=== PATIENT | male | born 1955 | race Two or more races ===

== ENCOUNTER → 2018-08-30 | Emergency (ER) | payer MEDICARE ==
[2018-08-30 22:14] VITALS: BMI 46.3
--- NOTE | 2018-08-30 22:34 | PDOC ---
History of Present Illness <Henry Darby - Last Filed: 08/30/18 23:31> - General History Source: Patient - History of Present Illness Initial Comments: 08/30/18 22:31 The patient is a 62 year old male with a PMH of morbid obseity, IDDM, Hepatitis B, chronic lymphedema, CHF who was BIBEMS with low blood sugar. @ bedside assists with history. Patient states he took his Metformin, Lantus (50 units) and Humalog (25 units) this morning before breakfast (2 peanut butter and jelly sandwiches) and Humalog (25 units) after eating. He did not eat any more food during the day because is he got busy going to his various health appointment including a liver ultrasound @ [facility]. States he last remembers watching [employer] and then found him difficult to arouse around 8:30 p.m. Patient's gave him a drink of pureed grapes and orange juice with little improvement in his symptoms. EMS was called and patient's BS was 29 @ home. S/p glucose and glucagon by EMS with improving mentation, repeat FS 73 en route. Patient denies any active medical complaints including headache, blurry vision, shortness of breath, chest pain abdominal pain, nausea/vomiting, diarrhea/ constipation. Allergy: Shellfish, Bees Surgical: abdominal hernia repair, appendectomy Social: former smoker (1/2 ppd 50 years - quit March 2018), denies alcohol, former marijuana/cocaine user PMD: Dr. Martina Escoot M.D. ([facility]) As per EMR, patient has not been evaluated in our ED on prior occasion. <Dorita Lazo - Last Filed: 08/31/18 00:09> - General Chief Complaint: Blood Sugar Problem Stated Complaint: HIGH BP Time Seen by Provider: 08/30/18 22:16 Past History <Henry Darby - Last Filed: 08/30/18 23:31> - Suicide/Smoking/Psychosocial Hx Smoking History: Unknown if ever smoked Hx Alcohol Use: No Drug/Substance Use Hx: No <Dorita Lazo - Last Filed: 08/31/18 00:09> - Past Medical History Allergies/Adverse Reactions: Allergies Allergy/AdvReac Type Severity Reaction Status Date / Time bee pollen Allergy Verified 08/30/18 22:57 shellfish derived Allergy Verified 08/30/18 22:57 Review of Systems - Review of Systems Constitutional: No: Chills, Fever HEENTM: No: Blurred Vision, Double Vision Respiratory: No: Cough, Shortness of Breath Cardiac (ROS): No: Chest Pain, Lightheadedness, Palpitations, Syncope ABD/GI: No: Constipated, Diarrhea, Nausea, Vomiting <Dorita Lazo - Last Filed: 08/31/18 00:09> *Physical Exam - Vital Signs Last Vital Signs Temp Pulse Resp BP Pulse Ox 98.5 F 64 20 180/100 H 99 08/30/18 22:11 08/30/18 22:11 08/30/18 22:11 08/30/18 22:11 08/30/18 22:11 <Henry Darby - Last Filed: 08/30/18 23:31> - Vital Signs Last Vital Signs Temp Pulse Resp BP Pulse Ox 98.5 F 64 20 180/100 H 99 08/30/18 22:11 08/30/18 22:11 08/30/18 22:11 08/30/18 22:11 08/30/18 22:11 - Physical Exam General Appearance: Yes: Nourished, Obese HEENT: positive: Normal Voice, Hearing Grossly Normal Neck: positive: Trachea midline, Supple Respiratory/Chest: positive: Lungs Clear Cardiovascular: positive: S1, S2, Edema (B/L LE edema 2/2 to chronic lymp) Vascular Pulses: Dorsalis-Pedis (R): 2+, Doralis-Pedis (L): 2+ Gastrointestinal/Abdominal: positive: Normal Bowel Sounds, Soft, Protuberent Extremity: positive: Other (B/L lymphedema (chronic), chronic venous stasis changes) Integumentary: positive: Normal Color, Dry, Warm Neurologic: positive: Fully Oriented, Alert <Dorita Lazo - Last Filed: 08/31/18 00:09> Medical Decision Making - Medical Decision Making 08/30/18 22:42 62 year old male with low BS (73 in the field). Hypertensive (180/100) @ presentation. Will repeat fingerstick, encourage PO intake. Monitor BP. Reassess. 08/30/18 23:44 Repeat BP 115/63 Fingerstick 159 Will discharge home with counseling to monitor BS and PO intake, return precautions and PMD follow-up. I discussed the physical exam findings, ancillary test results and final diagnoses with the patient. I answered all of the patient's questions. The patient was satisfied with the care received and felt comfortable with the discharge plan and treatment plan. The patient will return to the Emergency Department with any new, persistent or worsening symptoms. <Dorita Lazo - Last Filed: 08/31/18 00:09> *DC/Admit/Observation/Transfer <MehnazHenry - Last Filed: 08/30/18 23:31> - Discharge Dispostion Decision to Admit order: No <Dorita Lazo - Last Filed: 08/31/18 00:09> Diagnosis at time of Disposition: Hypoglycemia - Discharge Dispostion Disposition: HOME Condition at time of disposition: Good - Referrals Referrals: Martina Escoto [Primary Care Provider] - - Patient Instructions Printed Discharge Instructions: DI for Hypoglycemia Additional Instructions: Your sugar was extremely low today. Low blood sugar can cause confusion, lethargy, or even . You must be sure to eat enough to keep your blood sugar from falling too low. Check your blood sugar at least 4 times a day. If you experience any confusion, cold sweats, loss of consciousness, or any other concerning symptoms, return to the ER immediately. Otherwise, follow up with your primary doctor within 1 week. If you sugar continues to run low, you may need to have your insulin dosage adjusted.
--- NOTE | 2018-08-30 23:26 | PDOC ---
Attending Attestation - Resident Resident Name: Dorita Lazo - ED Attending Attestation I have performed the following: I have examined & evaluated the patient, The case was reviewed & discussed with the resident, I agree w/resident's findings & plan, Exceptions are as noted - HPI HPI: 08/30/18 23:21 The patient is a 62 year old female, with a significant past medical history of morbid obesity, IDDM, Hepatitis B, chronic lymphedema, CHF, who presents to the emergency department with at bedside for an episode of hypoglycemia. The patient states he didn't eat after breakfast this morning at 10AM (2 peanut butter and jelly sandwiches). He took his usual doses of lantus and novolog this AM. Denies inadvertently taking any additional doses. After he ate his sandwiches, he took his usual short-acting insulin. However, pt states that he was out running errands today and didn't have a chance to eat in the afternoon. He states he remembers watching TV on the couch this evening at about 8PM but has no recollection of the events afterwards. The at bedside states she found him confused at 8:30pm on the couch. She called EMS, who arrived and checked his sugar, which was 29 at the scene. Pt was given oral glucose and glucagon, with subsequent improvement in his mental status. Fingerstick in ER was 139. Pt at this time states that he feels completely back to baseline. The patient denies chest pain, shortness of breath, headache and dizziness. The patient denies fever, chills, nausea, vomit, diarrhea and constipation. The patient denies dysuria, frequency, urgency and hematuria. Allergies: NKDA PCP: Dr. aMrtina Escoto - Physicial Exam PE: 08/30/18 23:25 GENERAL: Awake, alert, and fully oriented, in no acute distress. HEAD: No signs of trauma EYES: PERRLA, EOMI, sclera anicteric, conjunctiva clear ENT: Auricles normal inspection, hearing grossly normal, nares patent, oropharynx clear without exudates. Moist mucosa NECK: Nontender, no stepoffs, Normal ROM, supple, no lymphadenopathy, JVD, or masses LUNGS: Breath sounds equal, clear to auscultation bilaterally. No wheezes, and no crackles HEART: Regular rate and rhythm, normal S1 and S2, no murmurs, rubs or gallops ABDOMEN: Soft, nontender, normoactive bowel sounds. No guarding, no rebound. No masses EXTREMITIES: Normal range of motion, no edema. No clubbing or cyanosis. No cords, erythema, or tenderness NEUROLOGICAL: Cranial nerves II through XII intact. 5/5 strength and sensation in all extremities, Normal speech, normal gait, normal cerebellar function SKIN: Warm, Dry, normal turgor, no rashes or lesions noted. - Medical Decision Making 08/30/18 23:25 62 M with IDDM presenting with episode of hypoglycemia and AMS, now resolved. Pt with no focal neuro deficits to suggest CVA/TIA. Pt's glucose was 29 in the field, likely 2/2 poor PO intake after taking his usual doses of insulin. Pt now with normal FSG and back to baseline mentation. - Close glucose monitoring at home - F/u PMD Repeat fingersticks in ED consistently >100 Pt is well appearing, with normal vitals. Clinically stable for DC at this time. I discussed the physical exam findings, ancillary test results and final diagnoses with the patient. I answered all of the patient's questions. The patient was satisfied with the care received and felt comfortable with the discharge plan and treatment plan. The patient agrees to follow up with the primary care physician within 24-72 hours.
[2018-08-30 23:50] VITALS: BP 115/63; PULSE 63; TEMP 97.5
== END | disposition home or self-care (01) ==
LOC: JER 21:58
DX: E11.649 Type 2 diabetes mellitus with hypoglycemia without coma (principal); Z79.4 Long term (current) use of insulin; Z79.84 Long term (current) use of oral hypoglycemic drugs; I50.9 Heart failure, unspecified; I89.0 Lymphedema, not elsewhere classified; Z86.19 Personal history of other infectious and parasitic diseases; E66.01 Morbid (severe) obesity due to excess calories; Z68.42 Body mass index [BMI] 45.0-49.9, adult
CPT/HCPCS: 82962; 99282-25

== ENCOUNTER 2021-03-14 11:09 | Emergency (ER) | payer OTHER ==
[2021-03-14 11:25] VITALS: TEMP 98.6; BMI 47.5
[2021-03-14] MEDS ORDERED: FAMOTIDINE 20 MG/50 ML IVPB 20 MG/50 ML MG IVPB ONE ×2 (12:27→12:51)
[2021-03-14] MEDS ORDERED: METOCLOPRAMIDE HCL INJECTION 10 MG/2 ML VIAL IVPUSH ONE (12:27)
[2021-03-14] MEDS ORDERED: MAG HYDROX/AL HYDROX/SIMETH 30 ML UNIT-DOSE CUP PO ONE (12:28)
[2021-03-14] MEDS ORDERED: ACETAMINOPHEN 1000 MG/100 ML VIAL (NON FORMULARY) IVPB ONE (12:47)
[2021-03-14] MEDS ORDERED: METOCLOPRAMIDE HCL INJECTION 10 MG/2 ML VIAL ONE (12:51)
[2021-03-14] MEDS ORDERED: MAG HYDROX/AL HYDROX/SIMETH 30 ML UNIT-DOSE CUP ONE (12:51)
[2021-03-14 13:06] LABS: VENOUS BASE EXCESS -3.4 mmol/L (-2-2); VENOUS O2 SATURATION 29.3 % (70-80); VENOUS PCO2 43.2 mmHg (38-52); VENOUS PH 7.331 (7.310-7.410)
[2021-03-14] MEDS ORDERED: ACETAMINOPHEN INJECTION 100 ML IVPB ONE (13:10)
[2021-03-14 13:15] LABS: BASO % 0.6 % (0-2.0); EOS % 0.7 % (0-4.5); HEMATOCRIT 40.1 % (35.4-49); LYMPH % 13.3 % (8-40); MCH 29.1 pg (25.7-33.7); MCHC 32.4 g/dl (32.0-35.9); MEAN CELL VOLUME 89.8 fl (80-96); MONO % 6.8 % (3.8-10.2); NEUT % 78.6 % (42.8-82.8); PLATELET COUNT 289 K/MM3 (134-434); RBC 4.46 M/mm3 (4.00-5.60); RDW 14.1 % (11.9-15.9)
[2021-03-14 13:18] LABS: CHLORIDE 113 mmol/L (98-107); SODIUM 143 mmol/L (136-145)
[2021-03-14 13:20] LABS: CALCIUM 9.2 mg/dL (8.5-10.1)
[2021-03-14 13:21] LABS: ALBUMIN 3.6 g/dl (3.4-5.0); ANION GAP 5 MMOL/L (8-16); BLOOD UREA NITROGEN 35.6 mg/dL (7-18); CO2 25 mmol/L (21-32); GLUCOSE,RANDOM 105 mg/dL (74-106); LIPASE 113 U/L (73-393)
[2021-03-14 13:23] LABS: SGPT/ALT 13 U/L (13-61)
[2021-03-14 13:24] LABS: CREATININE 1.9 mg/dL (0.55-1.3); SGOT/AST 11 U/L (15-37)
[2021-03-14 13:26] LABS: ALK PHOS 110 U/L (45-117); BILIRUBIN,TOTAL 0.3 mg/dL (0.2-1); TOT PROT 7.9 g/dl (6.4-8.2)
[2021-03-14] MEDS ORDERED: ONDANSETRON 4 MG/2 ML VIAL IVPUSH ONE (13:50)
[2021-03-14] MEDS ORDERED: ONDANSETRON 4 MG/2 ML VIAL ONE (14:00)
[2021-03-14 16:39] VITALS: BP 149/86; PULSE 86
== END 2021-03-14 16:47 | disposition home or self-care (01) ==
LOC: JER 11:09
PROC: 3E033NZ Introduction of Analgesics, Hypnotics, Sedatives into Peripheral Vein, Percutaneous Approach (ICD-10-PCS; principal; 2021-03-14)
PROC: 3E033GC Introduction of Other Therapeutic Substance into Peripheral Vein, Percutaneous Approach (ICD-10-PCS; 2021-03-14)
DX: R19.7 Diarrhea, unspecified (principal); R11.2 Nausea with vomiting, unspecified
CPT/HCPCS: 36415; 71045-TC-FY; 76705-TC; 80053; 82550; 82803; 82962; 83690; 84484; 85025; 93005; 93010; 99285-25; C9803; J0131; U0003; U0005

== ENCOUNTER 2021-03-15 15:30 | Inpatient (IN) | payer OTHER ==
[2021-03-15] MEDS ORDERED: ONDANSETRON 4 MG/2 ML VIAL IVPUSH ONE (16:31)
[2021-03-15] MEDS ORDERED: SODIUM CHLORIDE 1,000 ML IV STA (16:31)
[2021-03-15 18:31] LABS: BASO % 0.6 % (0-2.0); EOS % 1.8 % (0-4.5); HEMATOCRIT 40.2 % (35.4-49); HEMOGLOBIN 13.1 GM/dL (11.7-16.9); LYMPH % 14.9 % (8-40); MCHC 32.5 g/dl (32.0-35.9); MEAN CELL VOLUME 89.2 fl (80-96); MONO % 5.6 % (3.8-10.2); NEUT % 77.1 % (42.8-82.8); PLATELET COUNT 299 K/MM3 (134-434); RDW 14.2 % (11.9-15.9); WHITE BLOOD COUNT 15.2 K/mm3 (4.0-10.0)
[2021-03-15 18:47] LABS: ALBUMIN 3.7 g/dl (3.4-5.0); BLOOD UREA NITROGEN 27.7 mg/dL (7-18); CALCIUM 9.4 mg/dL (8.5-10.1)
[2021-03-15 18:50] LABS: CREATININE 2.2 mg/dL (0.55-1.3)
[2021-03-15 18:52] LABS: BILIRUBIN,TOTAL 0.4 mg/dL (0.2-1); TOT PROT 8.1 g/dl (6.4-8.2)
[2021-03-15] MEDS: HEPARIN NA (PORCINE) 5,000 UNITS/ML 1ML VIAL SQ SCH (23:55)
[2021-03-16] MEDS: HEPARIN NA (PORCINE) 5,000 UNITS/ML 1ML VIAL SQ SCH ×3 (01:43→21:57)
[2021-03-16] MEDS ORDERED: PT OWN MED DRAWER 7, Y5N ONE (09:23)
[2021-03-16 09:34] LABS: BASO % 1.1 % (0-2.0); EOS % 3.2 % (0-4.5); HEMATOCRIT 37.3 % (35.4-49); LYMPH % 23.7 % (8-40); MCHC 32.2 g/dl (32.0-35.9); MEAN CELL VOLUME 90.2 fl (80-96); MEAN PLT VOLUME 9.8 fl (7.5-11.1); MONO % 7.2 % (3.8-10.2); NEUT % 64.8 % (42.8-82.8); PLATELET COUNT 278 K/MM3 (134-434); RBC 4.14 M/mm3 (4.00-5.60); RDW 14.5 % (11.9-15.9)
[2021-03-16 09:59] LABS: CALCIUM 8.9 mg/dL (8.5-10.1)
[2021-03-16 10:00] LABS: ALBUMIN 3.3 g/dl (3.4-5.0); BLOOD UREA NITROGEN 35.3 mg/dL (7-18); MAGNESIUM 1.9 mg/dL (1.8-2.4)
[2021-03-16] MEDS ORDERED: FUROSEMIDE 40 MG TABLET (FP) PO SCH (10:00)
[2021-03-16 10:02] LABS: BILIRUBIN,TOTAL 0.3 mg/dL (0.2-1)
[2021-03-16 10:03] LABS: CREATININE 2.6 mg/dL (0.55-1.3)
[2021-03-16] MEDS: FINASTERIDE 5 MG TABLET (FP) PO SCH (10:25)
[2021-03-16] MEDS: ALLOPURINOL 100 MG TABLET (FP) PO SCH (10:25)
[2021-03-16] MEDS: ASPIRIN 81 MG CHEWABLE TABLETS PO SCH (10:26)
[2021-03-16] MEDS: TAMSULOSIN HCL 0.4 MG CAP PO SCH (10:26)
[2021-03-16] MEDS: INSULIN SLIDING SCALE (NOVOLOG) 1 VIAL SQ SCH ×3 (11:35→22:02)
[2021-03-16 12:35] LABS: URINE APPEARANCE CLEAR; URINE BILIRUBIN NEGATIVE (NEGATIVE); URINE COLOR YELLOW; URINE GLUCOSE (UA) NEGATIVE (NEGATIVE); URINE KETONE TRACE (NEGATIVE); URINE LEUK ESTERASE NEGATIVE (NEGATIVE); URINE NITRITE NEGATIVE (NEGATIVE); URINE PROTEIN TRACE (NEGATIVE); URINE UROBILINOGEN 0.2 mg/dL (0.2-1.0)
[2021-03-16] MEDS ORDERED: SODIUM CHLORIDE 0.45% 1,000 ML IV SCH (20:00)
[2021-03-16] MEDS: ACETAMINOPHEN 500 MG TABLET (FP) PO PRN (20:30)
[2021-03-16] MEDS: ATORVASTATIN CA 10 MG TABLET (FP) PO SCH (21:57)
[2021-03-16] MEDS: SERTRALINE HCL 50 MG TABLET (FP) PO SCH (21:57)
[2021-03-17] MEDS: INSULIN SLIDING SCALE (NOVOLOG) 1 VIAL SQ SCH ×4 (07:02→21:11)
[2021-03-17] MEDS: TAMSULOSIN HCL 0.4 MG CAP PO SCH (08:07)
[2021-03-17] MEDS: ALLOPURINOL 100 MG TABLET (FP) PO SCH (09:37)
[2021-03-17] MEDS: ASPIRIN 81 MG CHEWABLE TABLETS PO SCH (09:37)
[2021-03-17] MEDS: FINASTERIDE 5 MG TABLET (FP) PO SCH (09:37)
[2021-03-17] MEDS: HEPARIN NA (PORCINE) 5,000 UNITS/ML 1ML VIAL SQ SCH ×2 (09:37→21:10)
[2021-03-17 12:43] LABS: BASO % 0.7 % (0-2.0); EOS % 2.4 % (0-4.5); HEMATOCRIT 36.2 % (35.4-49); HEMOGLOBIN 11.8 GM/dL (11.7-16.9); LYMPH % 22.5 % (8-40); MCHC 32.6 g/dl (32.0-35.9); MEAN PLT VOLUME 9.6 fl (7.5-11.1); MONO % 6.4 % (3.8-10.2); PLATELET COUNT 300 K/MM3 (134-434); RBC 4.06 M/mm3 (4.00-5.60); RDW 14.3 % (11.9-15.9); WHITE BLOOD COUNT 11.8 K/mm3 (4.0-10.0)
[2021-03-17 13:03] LABS: ALBUMIN 3.1 g/dl (3.4-5.0); BLOOD UREA NITROGEN 30.7 mg/dL (7-18); CALCIUM 8.6 mg/dL (8.5-10.1)
[2021-03-17 13:08] LABS: BILIRUBIN,TOTAL 0.2 mg/dL (0.2-1); TOT PROT 6.8 g/dl (6.4-8.2)
[2021-03-17] MEDS: ACETAMINOPHEN 500 MG TABLET (FP) PO PRN ×2 (14:21→21:09)
[2021-03-17] MEDS: ATORVASTATIN CA 10 MG TABLET (FP) PO SCH (21:10)
[2021-03-17] MEDS: SERTRALINE HCL 50 MG TABLET (FP) PO SCH (21:11)
[2021-03-18] MEDS: INSULIN SLIDING SCALE (NOVOLOG) 1 VIAL SQ SCH ×4 (06:07→22:15)
[2021-03-18] MEDS: TAMSULOSIN HCL 0.4 MG CAP PO SCH (08:56)
[2021-03-18 10:25] LABS: CALCIUM 8.9 mg/dL (8.5-10.1)
[2021-03-18 10:26] LABS: ALBUMIN 3.3 g/dl (3.4-5.0)
[2021-03-18 10:29] LABS: CREATININE 1.8 mg/dL (0.55-1.3)
[2021-03-18 10:30] LABS: BILIRUBIN,TOTAL 0.3 mg/dL (0.2-1); BLOOD UREA NITROGEN 23.4 mg/dL (7-18); TOT PROT 7.2 g/dl (6.4-8.2)
[2021-03-18] MEDS: FINASTERIDE 5 MG TABLET (FP) PO SCH (11:17)
[2021-03-18] MEDS: ALLOPURINOL 100 MG TABLET (FP) PO SCH (11:17)
[2021-03-18] MEDS: HEPARIN NA (PORCINE) 5,000 UNITS/ML 1ML VIAL SQ SCH ×2 (11:17→22:14)
[2021-03-18] MEDS: ASPIRIN 81 MG CHEWABLE TABLETS PO SCH (11:23)
[2021-03-18 12:23] LABS: EOS % 2.6 % (0-4.5); HEMATOCRIT 38.5 % (35.4-49); HEMOGLOBIN 12.7 GM/dL (11.7-16.9); LYMPH % 21.6 % (8-40); MCH 29.6 pg (25.7-33.7); MCHC 33.1 g/dl (32.0-35.9); MEAN CELL VOLUME 89.3 fl (80-96); MEAN PLT VOLUME 9.8 fl (7.5-11.1); MONO % 7.7 % (3.8-10.2); NEUT % 67.1 % (42.8-82.8); PLATELET COUNT 303 K/MM3 (134-434); RBC 4.31 M/mm3 (4.00-5.60); RDW 14.3 % (11.9-15.9); WHITE BLOOD COUNT 10.5 K/mm3 (4.0-10.0)
[2021-03-18] MEDS ORDERED: INSULIN (NOVOLOG) ASPART 100 UNITS/ML 10ML VIAL ONE (21:16)
[2021-03-18] MEDS: ATORVASTATIN CA 10 MG TABLET (FP) PO SCH (22:16)
[2021-03-18] MEDS: SERTRALINE HCL 50 MG TABLET (FP) PO SCH (22:17)
[2021-03-18] MEDS: ACETAMINOPHEN 500 MG TABLET (FP) PO PRN (22:18)
[2021-03-19] MEDS: INSULIN SLIDING SCALE (NOVOLOG) 1 VIAL SQ SCH ×4 (06:39→21:46)
[2021-03-19] MEDS: SODIUM CHLORIDE 1,000 ML IV SCH ×2 (08:12→16:46)
[2021-03-19] MEDS: TAMSULOSIN HCL 0.4 MG CAP PO SCH (08:25)
[2021-03-19 09:26] LABS: BASO % 0.7 % (0-2.0); EOS % 3.3 % (0-4.5); HEMATOCRIT 36.5 % (35.4-49); HEMOGLOBIN 12.1 GM/dL (11.7-16.9); LYMPH % 25.1 % (8-40); MCH 29.7 pg (25.7-33.7); MCHC 33.2 g/dl (32.0-35.9); MEAN CELL VOLUME 89.5 fl (80-96); MEAN PLT VOLUME 9.8 fl (7.5-11.1); MONO % 7.8 % (3.8-10.2); NEUT % 63.1 % (42.8-82.8); PLATELET COUNT 294 K/MM3 (134-434); RBC 4.08 M/mm3 (4.00-5.60); WHITE BLOOD COUNT 10.5 K/mm3 (4.0-10.0)
[2021-03-19 10:20] LABS: BLOOD UREA NITROGEN 15.6 mg/dL (7-18); CALCIUM 8.6 mg/dL (8.5-10.1)
[2021-03-19 10:23] LABS: CREATININE 1.5 mg/dL (0.55-1.3)
[2021-03-19 10:25] LABS: BILIRUBIN,TOTAL 0.2 mg/dL (0.2-1); TOT PROT 6.8 g/dl (6.4-8.2)
[2021-03-19] MEDS: HEPARIN NA (PORCINE) 5,000 UNITS/ML 1ML VIAL SQ SCH ×2 (10:32→21:30)
[2021-03-19] MEDS: ASPIRIN 81 MG CHEWABLE TABLETS PO SCH (10:32)
[2021-03-19] MEDS: FINASTERIDE 5 MG TABLET (FP) PO SCH (10:32)
[2021-03-19] MEDS: ALLOPURINOL 100 MG TABLET (FP) PO SCH (10:32)
[2021-03-19] MEDS ORDERED: INSULIN (NOVOLOG) ASPART 100 UNITS/ML 10ML VIAL ONE (11:05)
[2021-03-19] MEDS: ACETAMINOPHEN 500 MG TABLET (FP) PO PRN (13:20)
[2021-03-19 20:07] LABS: OXYCODONE BLOOD Negative ng/mL (Cutoff:5); PCP BLOOD Negative ng/mL (Cutoff:8)
[2021-03-19] MEDS: ATORVASTATIN CA 10 MG TABLET (FP) PO SCH (21:31)
[2021-03-19] MEDS: SERTRALINE HCL 50 MG TABLET (FP) PO SCH (21:31)
[2021-03-20] MEDS: SODIUM CHLORIDE 1,000 ML IV SCH ×2 (04:54→17:03)
[2021-03-20] MEDS: INSULIN SLIDING SCALE (NOVOLOG) 1 VIAL SQ SCH ×4 (07:40→22:29)
[2021-03-20] MEDS: ACETAMINOPHEN 500 MG TABLET (FP) PO PRN ×2 (08:06→17:05)
[2021-03-20] MEDS: TAMSULOSIN HCL 0.4 MG CAP PO SCH (08:06)
[2021-03-20 09:11] LABS: HEMATOCRIT 38.5 % (35.4-49); HEMOGLOBIN 12.5 GM/dL (11.7-16.9); MCH 29.3 pg (25.7-33.7); MCHC 32.5 g/dl (32.0-35.9); MEAN PLT VOLUME 9.9 fl (7.5-11.1); PLATELET COUNT 313 K/MM3 (134-434); RBC 4.28 M/mm3 (4.00-5.60); RDW 14.4 % (11.9-15.9); WHITE BLOOD COUNT 9.8 K/mm3 (4.0-10.0)
[2021-03-20 09:32] LABS: CREATININE 1.4 mg/dL (0.55-1.3)
[2021-03-20] MEDS ORDERED: LISINOPRIL 10 MG TABLET PO SCH (10:00)
[2021-03-20] MEDS: HEPARIN NA (PORCINE) 5,000 UNITS/ML 1ML VIAL SQ SCH ×2 (10:21→21:03)
[2021-03-20] MEDS: ALLOPURINOL 100 MG TABLET (FP) PO SCH (10:21)
[2021-03-20] MEDS: FINASTERIDE 5 MG TABLET (FP) PO SCH (10:21)
[2021-03-20] MEDS: ASPIRIN 81 MG CHEWABLE TABLETS PO SCH (10:21)
[2021-03-20] MEDS ORDERED: INSULIN (NOVOLOG) ASPART 100 UNITS/ML 10ML VIAL ONE ×2 (10:35→16:20)
[2021-03-20] MEDS: MIDODRINE HCL 2.5 MG TABLET PO SCH ×2 (14:10→17:04)
[2021-03-20] MEDS ORDERED: BISACODYL 5 MG TABLET.DR (FP) PO ONE (14:35)
[2021-03-20] MEDS ORDERED: PT OWN MED DRAWER 7, Y5N ONE (17:02)
[2021-03-20 17:07] LABS: FREE KAPPA,SERUM 35.4 mg/L (3.3-19.4)
[2021-03-20] MEDS: SERTRALINE HCL 50 MG TABLET (FP) PO SCH (21:03)
[2021-03-20] MEDS: ATORVASTATIN CA 10 MG TABLET (FP) PO SCH (21:04)
[2021-03-20 22:51] VITALS: BMI 45.6
[2021-03-21] MEDS: INSULIN SLIDING SCALE (NOVOLOG) 1 VIAL SQ SCH ×4 (06:10→21:31)
[2021-03-21 08:37] LABS: CALCIUM 8.9 mg/dL (8.5-10.1)
[2021-03-21 08:38] LABS: BLOOD UREA NITROGEN 11.7 mg/dL (7-18)
[2021-03-21 08:41] LABS: CREATININE 1.4 mg/dL (0.55-1.3)
[2021-03-21] MEDS ORDERED: PT OWN MED DRAWER 7, Y5N ONE ×2 (10:01→18:01)
[2021-03-21] MEDS: ACETAMINOPHEN 500 MG TABLET (FP) PO PRN (10:09)
[2021-03-21] MEDS: ASPIRIN 81 MG CHEWABLE TABLETS PO SCH (10:10)
[2021-03-21] MEDS: ALLOPURINOL 100 MG TABLET (FP) PO SCH (10:11)
[2021-03-21] MEDS: HEPARIN NA (PORCINE) 5,000 UNITS/ML 1ML VIAL SQ SCH ×2 (10:11→21:30)
[2021-03-21] MEDS: MIDODRINE HCL 2.5 MG TABLET PO SCH ×2 (10:11→13:45)
[2021-03-21] MEDS: MIDODRINE HCL 5 MG TABLET PO SCH (17:57)
[2021-03-21] MEDS: ATORVASTATIN CA 10 MG TABLET (FP) PO SCH (21:31)
[2021-03-21] MEDS: SERTRALINE HCL 50 MG TABLET (FP) PO SCH (21:31)
[2021-03-22] MEDS: INSULIN SLIDING SCALE (NOVOLOG) 1 VIAL SQ SCH ×4 (06:14→21:58)
[2021-03-22] MEDS ORDERED: PT OWN MED DRAWER 7, Y5N ONE ×2 (09:03→17:48)
[2021-03-22] MEDS: HEPARIN NA (PORCINE) 5,000 UNITS/ML 1ML VIAL SQ SCH ×2 (09:12→21:50)
[2021-03-22] MEDS: ASPIRIN 81 MG CHEWABLE TABLETS PO SCH (09:13)
[2021-03-22] MEDS: ALLOPURINOL 100 MG TABLET (FP) PO SCH (09:13)
[2021-03-22] MEDS: MIDODRINE HCL 5 MG TABLET PO SCH ×3 (09:13→17:43)
[2021-03-22 09:32] LABS: CALCIUM 9.1 mg/dL (8.5-10.1)
[2021-03-22 09:33] LABS: BLOOD UREA NITROGEN 11.9 mg/dL (7-18); MAGNESIUM 1.5 mg/dL (1.8-2.4)
[2021-03-22 09:36] LABS: CREATININE 1.4 mg/dL (0.55-1.3); PHOSPHOROUS 1.6 mg/dL (2.5-4.9)
[2021-03-22] MEDS ORDERED: INSULIN (NOVOLOG) ASPART 100 UNITS/ML 10ML VIAL ONE (12:57)
[2021-03-22] MEDS: ACETAMINOPHEN 500 MG TABLET (FP) PO PRN ×2 (14:19→21:53)
[2021-03-22] MEDS: ATORVASTATIN CA 10 MG TABLET (FP) PO SCH (21:49)
[2021-03-22] MEDS: MAGNESIUM OXIDE 400 MG TABLET (FP) PO SCH (21:49)
[2021-03-22] MEDS: SERTRALINE HCL 50 MG TABLET (FP) PO SCH (21:49)
[2021-03-22] MEDS: NAPH,MB-DB/K PH,MBDB POWDER PACKET PO SCH (21:49)
[2021-03-23] MEDS: INSULIN SLIDING SCALE (NOVOLOG) 1 VIAL SQ SCH ×4 (06:24→21:48)
[2021-03-23] MEDS: ACETAMINOPHEN 500 MG TABLET (FP) PO PRN ×2 (08:29→17:14)
[2021-03-23 09:59] LABS: ALBUMIN 2.9 g/dl (3.4-5.0); BLOOD UREA NITROGEN 13.8 mg/dL (7-18); CALCIUM 8.5 mg/dL (8.5-10.1); MAGNESIUM 1.6 mg/dL (1.8-2.4)
[2021-03-23 10:02] LABS: CREATININE 1.4 mg/dL (0.55-1.3); PHOSPHOROUS 2.1 mg/dL (2.5-4.9)
[2021-03-23 10:03] LABS: BILIRUBIN,TOTAL 0.4 mg/dL (0.2-1)
[2021-03-23 10:04] LABS: TOT PROT 6.6 g/dl (6.4-8.2)
[2021-03-23] MEDS ORDERED: PT OWN MED DRAWER 7, Y5N ONE ×3 (10:08→17:12)
[2021-03-23] MEDS: MAGNESIUM OXIDE 400 MG TABLET (FP) PO SCH ×2 (10:40→21:46)
[2021-03-23] MEDS: ASPIRIN 81 MG CHEWABLE TABLETS PO SCH (10:40)
[2021-03-23] MEDS: MIDODRINE HCL 5 MG TABLET PO SCH ×3 (10:40→17:13)
[2021-03-23] MEDS: ALLOPURINOL 100 MG TABLET (FP) PO SCH (10:40)
[2021-03-23] MEDS: NAPH,MB-DB/K PH,MBDB POWDER PACKET PO SCH ×2 (10:40→21:47)
[2021-03-23] MEDS ORDERED: INSULIN (NOVOLOG) ASPART 100 UNITS/ML 10ML VIAL ONE (11:24)
[2021-03-23] MEDS ORDERED: MAGNESIUM SULF 50% (8.12 MEQ/2 ML-1 GM VIAL) IVPB ONE (14:09)
[2021-03-23 17:09] LABS: EPI CELLS 6 /uL (0-25.1); HYALINE CASTS 9 /uL (0-3.1); PH,URINE >= 9.0 (5.0-8.0); URINE APPEARANCE CLOUDY; URINE BACTERIA >9,000 /uL (0-1359); URINE BILIRUBIN NEGATIVE (NEGATIVE); URINE COLOR YELLOW; URINE GLUCOSE (UA) TRACE (NEGATIVE); URINE KETONE NEGATIVE (NEGATIVE); URINE LEUK ESTERASE 2+ (NEGATIVE); URINE NITRITE POSITIVE (NEGATIVE); URINE PROTEIN 2+ (NEGATIVE); URINE RBC 45 /uL (0-23.9); URINE WBC 510 /uL (0-25.8)
[2021-03-23] MEDS: SERTRALINE HCL 50 MG TABLET (FP) PO SCH (21:46)
[2021-03-23] MEDS: ATORVASTATIN CA 10 MG TABLET (FP) PO SCH (21:47)
[2021-03-24] MEDS: ACETAMINOPHEN 500 MG TABLET (FP) PO PRN (06:49)
[2021-03-24] MEDS: INSULIN SLIDING SCALE (NOVOLOG) 1 VIAL SQ SCH ×4 (06:50→21:38)
[2021-03-24 08:37] LABS: EOS % 4.3 % (0-4.5); HEMATOCRIT 38.7 % (35.4-49); LYMPH % 19.5 % (8-40); MCH 29.8 pg (25.7-33.7); MCHC 33.6 g/dl (32.0-35.9); MEAN CELL VOLUME 88.8 fl (80-96); MEAN PLT VOLUME 8.6 fl (7.5-11.1); MONO % 10.1 % (3.8-10.2); NEUT % 65.1 % (42.8-82.8); PLATELET COUNT 284 K/MM3 (134-434); RBC 4.36 M/mm3 (4.00-5.60); RDW 14.9 % (11.9-15.9); WHITE BLOOD COUNT 9.4 K/mm3 (4.0-10.0)
[2021-03-24 09:16] LABS: CALCIUM 8.5 mg/dL (8.5-10.1)
[2021-03-24 09:17] LABS: BLOOD UREA NITROGEN 14.4 mg/dL (7-18); MAGNESIUM 1.9 mg/dL (1.8-2.4)
[2021-03-24 09:20] LABS: CREATININE 1.4 mg/dL (0.55-1.3)
[2021-03-24] MEDS ORDERED: PT OWN MED DRAWER 7, Y5N ONE ×2 (10:11→13:08)
[2021-03-24] MEDS: MIDODRINE HCL 5 MG TABLET PO SCH ×2 (10:12→13:15)
[2021-03-24] MEDS: ALLOPURINOL 100 MG TABLET (FP) PO SCH (10:12)
[2021-03-24] MEDS: MAGNESIUM OXIDE 400 MG TABLET (FP) PO SCH ×2 (10:12→21:37)
[2021-03-24] MEDS: NAPH,MB-DB/K PH,MBDB POWDER PACKET PO SCH ×2 (10:12→21:37)
[2021-03-24] MEDS: ASPIRIN 81 MG CHEWABLE TABLETS PO SCH (10:13)
[2021-03-24] MEDS ORDERED: CEFTRIAXONE 1,000 MG in DEXTROSE 5%-WATER - 50 ML IVPB ONE (12:31)
[2021-03-24] MEDS ORDERED: DEXTROSE 5%-WATER - 50 ML IVPB ONE (13:42)
[2021-03-24] MEDS ORDERED: cefTRIAXone SODIUM 1 GM VIAL ONE (13:42)
[2021-03-24] MEDS: CEFTRIAXONE 1 GM in DEXTROSE 5%-WATER - 50 ML IVPB SCH (13:45)
[2021-03-24] MEDS: FLUDROCORTISONE ACETATE 0.1 MG TABLET (FP) PO SCH (16:30)
[2021-03-24] MEDS: SERTRALINE HCL 50 MG TABLET (FP) PO SCH (21:37)
[2021-03-24] MEDS: ATORVASTATIN CA 10 MG TABLET (FP) PO SCH (21:37)
[2021-03-25] MEDS: INSULIN SLIDING SCALE (NOVOLOG) 1 VIAL SQ SCH ×4 (06:44→22:04)
[2021-03-25 08:47] LABS: BASO % 0.9 % (0-2.0); EOS % 3.4 % (0-4.5); HEMATOCRIT 39.6 % (35.4-49); HEMOGLOBIN 13.1 GM/dL (11.7-16.9); LYMPH % 19.8 % (8-40); MCH 29.6 pg (25.7-33.7); MCHC 33.1 g/dl (32.0-35.9); MEAN CELL VOLUME 89.5 fl (80-96); MEAN PLT VOLUME 9.2 fl (7.5-11.1); NEUT % 65.9 % (42.8-82.8); PLATELET COUNT 317 K/MM3 (134-434); RBC 4.43 M/mm3 (4.00-5.60); RDW 14.8 % (11.9-15.9); WHITE BLOOD COUNT 10.4 K/mm3 (4.0-10.0)
[2021-03-25 09:06] LABS: CALCIUM 8.9 mg/dL (8.5-10.1)
[2021-03-25 09:07] LABS: BLOOD UREA NITROGEN 15.9 mg/dL (7-18)
[2021-03-25 09:10] LABS: CREATININE 1.4 mg/dL (0.55-1.3)
[2021-03-25] MEDS ORDERED: DEXTROSE 5%-WATER - 50 ML IVPB ONE (09:34)
[2021-03-25] MEDS ORDERED: cefTRIAXone SODIUM 1 GM VIAL ONE (09:34)
[2021-03-25] MEDS: CEFTRIAXONE 1 GM in DEXTROSE 5%-WATER - 50 ML IVPB SCH (09:37)
[2021-03-25] MEDS: ASPIRIN 81 MG CHEWABLE TABLETS PO SCH (09:38)
[2021-03-25] MEDS: ALLOPURINOL 100 MG TABLET (FP) PO SCH (09:38)
[2021-03-25] MEDS: FUROSEMIDE 20 MG TABLET (FP) PO SCH (09:38)
[2021-03-25] MEDS: NAPH,MB-DB/K PH,MBDB POWDER PACKET PO SCH ×2 (09:38→22:03)
[2021-03-25] MEDS: MAGNESIUM OXIDE 400 MG TABLET (FP) PO SCH ×2 (09:38→22:01)
[2021-03-25] MEDS: FLUDROCORTISONE ACETATE 0.1 MG TABLET (FP) PO SCH (09:39)
[2021-03-25] MEDS ORDERED: PT OWN MED DRAWER 7, Y5N ONE (09:39)
[2021-03-25] MEDS: ACETAMINOPHEN 500 MG TABLET (FP) PO PRN ×2 (16:34→22:02)
[2021-03-25] MEDS: ATORVASTATIN CA 10 MG TABLET (FP) PO SCH (22:01)
[2021-03-25] MEDS: SERTRALINE HCL 50 MG TABLET (FP) PO SCH (22:01)
[2021-03-26] MEDS: INSULIN SLIDING SCALE (NOVOLOG) 1 VIAL SQ SCH ×3 (06:36→16:59)
[2021-03-26] MEDS ORDERED: FLUDROCORTISONE ACETATE 0.1 MG TABLET (FP) PO SCH (10:00)
[2021-03-26] MEDS ORDERED: PT OWN MED DRAWER 7, Y5N ONE ×2 (10:03→10:49)
[2021-03-26] MEDS: ALLOPURINOL 100 MG TABLET (FP) PO SCH (10:50)
[2021-03-26] MEDS: NAPH,MB-DB/K PH,MBDB POWDER PACKET PO SCH (10:51)
[2021-03-26] MEDS: MAGNESIUM OXIDE 400 MG TABLET (FP) PO SCH (10:51)
[2021-03-26] MEDS: ASPIRIN 81 MG CHEWABLE TABLETS PO SCH (10:51)
[2021-03-26] MEDS: FUROSEMIDE 20 MG TABLET (FP) PO SCH (10:52)
[2021-03-26 14:36] LABS: BLOOD UREA NITROGEN 15.9 mg/dL (7-18)
[2021-03-26 14:39] LABS: CREATININE 1.5 mg/dL (0.55-1.3)
[2021-03-26 14:40] VITALS: BP 156/69; PULSE 67; TEMP 98.5
== END 2021-03-26 17:44 | disposition home health service (06) | DRG 392 ==
LOC: JER 15:30 → JERBED 19:17 → J6S 23:42
PROVIDERS: ADMIT Internal Medicine; ATTEND Internal Medicine
DX: K52.9 Noninfective gastroenteritis and colitis, unspecified (principal); N17.9 Acute kidney failure, unspecified; Z68.41 Body mass index [BMI] 40.0-44.9, adult; N39.0 Urinary tract infection, site not specified; I13.0 Hypertensive heart and chronic kidney disease with heart failure and stage 1 through stage 4 chronic kidney disease, or unspecified chronic kidney disease; B19.10 Unspecified viral hepatitis B without hepatic coma; E66.01 Morbid (severe) obesity due to excess calories; D72.829 Elevated white blood cell count, unspecified; I95.1 Orthostatic hypotension; E11.22 Type 2 diabetes mellitus with diabetic chronic kidney disease; N18.9 Chronic kidney disease, unspecified; M10.9 Gout, unspecified; F43.10 Post-traumatic stress disorder, unspecified; E78.5 Hyperlipidemia, unspecified; N40.0 Benign prostatic hyperplasia without lower urinary tract symptoms; F32.9 Major depressive disorder, single episode, unspecified; R11.2 Nausea with vomiting, unspecified; E86.0 Dehydration; N28.1 Cyst of kidney, acquired; K80.20 Calculus of gallbladder without cholecystitis without obstruction; N18.30 Chronic kidney disease, stage 3 unspecified; I50.9 Heart failure, unspecified; B96.4 Proteus (mirabilis) (morganii) as the cause of diseases classified elsewhere
CPT/HCPCS: 36415; 71046-TC-FY; 74176-TC; 76775-TC; 76856-TC; 80048; 80053; 80307; 81003; 82607; 82728; 82746; 82784; 82962; 83550; 83690; 83735; 83883; 84100; 84443; 84484; 85025; 85027; 85045; 87086; 87186; 88300-TC; 93005; 93010; 97116-GP; 97162-GP; 99285-25; C9803; J1644; U0003; U0005

== ENCOUNTER 2021-06-15 00:35 | Emergency (ER) | payer OTHER ==
[2021-06-15 00:39] VITALS: BMI 42.7
[2021-06-15] MEDS ORDERED: DEXTROSE 50%-WATER - 25 GM/50 ML VIAL IVPUSH ONE (01:19)
[2021-06-15 06:28] LABS: HEMATOCRIT 39.3 % (35.4-49); HEMOGLOBIN 13.1 GM/dL (11.7-16.9); MCH 29.7 pg (25.7-33.7); MCHC 33.4 g/dl (32.0-35.9); MEAN PLT VOLUME 8.8 fl (7.5-11.1); PLATELET COUNT 280 10^3/uL (134-434); RBC 4.42 M/mm3 (4.00-5.60); RDW 15.7 % (11.9-15.9); WHITE BLOOD COUNT 8.3 K/mm3 (4.0-10.0)
[2021-06-15 06:42] LABS: ALBUMIN 2.9 g/dl (3.4-5.0); BLOOD UREA NITROGEN 15.1 mg/dL (7-18); MAGNESIUM 2.2 mg/dL (1.8-2.4)
[2021-06-15 06:45] LABS: CREATININE 1.6 mg/dL (0.55-1.3)
[2021-06-15 06:46] LABS: BILIRUBIN,TOTAL 0.3 mg/dL (0.2-1)
[2021-06-15 06:47] LABS: TOT PROT 6.7 g/dl (6.4-8.2)
[2021-06-15 06:57] VITALS: BP 148/75; PULSE 63; TEMP 98.3
== END 2021-06-15 08:04 | disposition home or self-care (01) ==
LOC: JER 00:35
DX: E13.649 Other specified diabetes mellitus with hypoglycemia without coma (principal)
CPT/HCPCS: 36415; 80053; 82962; 83735; 84100; 85027; 99283-25

== ENCOUNTER 2022-04-14 15:47 | Inpatient (IN) | payer OTHER ==
[2022-04-14 16:22] VITALS: BMI 38.7
[2022-04-14 17:29] LABS: BASO % 1.2 % (0-2.0); EOS % 2.5 % (0-4.5); HEMATOCRIT 39.9 % (35.4-49); HEMOGLOBIN 13.3 GM/dL (11.7-16.9); LYMPH % 22.9 % (8-40); MCH 28.8 pg (25.7-33.7); MCHC 33.3 g/dl (32.0-35.9); MEAN CELL VOLUME 86.7 fl (80-96); MEAN PLT VOLUME 8.3 fl (7.5-11.1); MONO % 8.9 % (3.8-10.2); NEUT % 64.5 % (42.8-82.8); PLATELET COUNT 401 10^3/uL (134-434); RBC 4.59 M/mm3 (4.00-5.60); RDW 14.9 % (11.9-15.9); WHITE BLOOD COUNT 11.8 K/mm3 (4.0-10.0)
[2022-04-14] MEDS ORDERED: ACETAMINOPHEN 1000 MG/100 ML BAG IVPB ONE (17:58)
[2022-04-14] MEDS ORDERED: ACETAMINOPHEN INJECTION 100 ML IVPB ONE (18:00)
[2022-04-14 18:07] LABS: EPI CELLS 4 /uL (0-25.1); HYALINE CASTS 2 /uL (0-3.1); URINE APPEARANCE CLEAR; URINE BACTERIA >9,000 /uL (0-1359); URINE BILIRUBIN NEGATIVE (NEGATIVE); URINE COLOR YELLOW; URINE GLUCOSE (UA) NEGATIVE (NEGATIVE); URINE KETONE NEGATIVE (NEGATIVE); URINE LEUK ESTERASE 1+ (NEGATIVE); URINE NITRITE NEGATIVE (NEGATIVE); URINE PROTEIN TRACE (NEGATIVE); URINE RBC 20 /uL (0-23.9); URINE WBC 211 /uL (0-25.8)
[2022-04-14 18:09] LABS: BLOOD UREA NITROGEN 24.8 mg/dL (7-18); CALCIUM 8.8 mg/dL (8.5-10.1); MAGNESIUM 1.8 mg/dL (1.8-2.4)
[2022-04-14 18:14] LABS: BILIRUBIN,TOTAL 0.4 mg/dL (0.2-1); TOT PROT 7.2 g/dl (6.4-8.2)
[2022-04-14 18:18] LABS: N-TERMINAL BNP 89.4 pg/ml (5-125)
[2022-04-14] MEDS ORDERED: CEFTRIAXONE 1 GM/50 ML BAG ONE (19:17)
[2022-04-14] MEDS: SODIUM CHLORIDE 1,000 ML IV SCH (21:08)
[2022-04-14] MEDS ORDERED: ATORVASTATIN CA 10 MG TABLET (FP) ONE (21:36)
[2022-04-14] MEDS: ATORVASTATIN CA 10 MG TABLET (FP) PO SCH (21:45)
[2022-04-14] MEDS: INSULIN SLIDING SCALE (NOVOLOG) 1 VIAL SQ SCH (22:55)
[2022-04-15] MEDS ORDERED: sitaGLIPtin PHOSPHATE 50 MG TABLET ONE (06:33)
[2022-04-15] MEDS ORDERED: ACETAMINOPHEN 325 MG TABLET (FP) ONE (08:09)
[2022-04-15] MEDS: ACETAMINOPHEN 325 MG TABLET (FP) PO PRN (08:19)
[2022-04-15] MEDS: INSULIN SLIDING SCALE (NOVOLOG) 1 VIAL SQ SCH ×4 (08:42→22:20)
[2022-04-15 10:54] LABS: BASO % 0.7 % (0-2.0); EOS % 3.1 % (0-4.5); HEMATOCRIT 40.6 % (35.4-49); HEMOGLOBIN 13.2 GM/dL (11.7-16.9); LYMPH % 22.6 % (8-40); MCH 28.5 pg (25.7-33.7); MCHC 32.6 g/dl (32.0-35.9); MEAN CELL VOLUME 87.5 fl (80-96); MEAN PLT VOLUME 8.7 fl (7.5-11.1); MONO % 8.4 % (3.8-10.2); NEUT % 65.2 % (42.8-82.8); PLATELET COUNT 422 10^3/uL (134-434); RBC 4.65 M/mm3 (4.00-5.60); RDW 15.2 % (11.9-15.9); WHITE BLOOD COUNT 10.7 K/mm3 (4.0-10.0)
[2022-04-15 11:37] LABS: ALBUMIN 2.9 g/dl (3.4-5.0); CALCIUM 8.7 mg/dL (8.5-10.1)
[2022-04-15 11:38] LABS: BLOOD UREA NITROGEN 21.8 mg/dL (7-18)
[2022-04-15 11:41] LABS: CREATININE 1.8 mg/dL (0.55-1.3)
[2022-04-15 11:42] LABS: BILIRUBIN,TOTAL 0.2 mg/dL (0.2-1)
[2022-04-15] MEDS: PIPERACILLIN/TAZOB 3.375 GM 3.375 GM in DEXTROSE 5%-WATER - 50 ML IVPB SCH ×2 (14:00→22:13)
[2022-04-15] MEDS ORDERED: PIPERACILLIN/TAZOB 3.375 GM 3.375 GM/50 ML BAG IVPB ONE (15:32)
[2022-04-15] MEDS: ATORVASTATIN CA 10 MG TABLET (FP) PO SCH (22:15)
[2022-04-16] MEDS ORDERED: PIPERACILLIN/TAZOBACTAM 3.375 GM VIAL IVPB ONE ×3 (01:26→18:12)
[2022-04-16] MEDS ORDERED: DEXTROSE 5%-WATER - 50 ML IVPB ONE ×3 (01:26→18:12)
[2022-04-16] MEDS: PIPERACILLIN/TAZOB 3.375 GM 3.375 GM in DEXTROSE 5%-WATER - 50 ML IVPB SCH ×3 (01:50→18:20)
[2022-04-16] MEDS: ACETAMINOPHEN 325 MG TABLET (FP) PO PRN ×2 (07:14→17:04)
[2022-04-16] MEDS: INSULIN SLIDING SCALE (NOVOLOG) 1 VIAL SQ SCH ×4 (07:20→21:42)
[2022-04-16] MEDS: SODIUM CHLORIDE 1,000 ML IV SCH (07:24)
[2022-04-16 08:23] LABS: EOS % 3.1 % (0-4.5); HEMATOCRIT 42.3 % (35.4-49); HEMOGLOBIN 14.1 GM/dL (11.7-16.9); LYMPH % 23.7 % (8-40); MCH 29.1 pg (25.7-33.7); MCHC 33.4 g/dl (32.0-35.9); MEAN CELL VOLUME 87.2 fl (80-96); MEAN PLT VOLUME 8.4 fl (7.5-11.1); NEUT % 64.2 % (42.8-82.8); PLATELET COUNT 430 10^3/uL (134-434); RBC 4.85 M/mm3 (4.00-5.60); RDW 15.2 % (11.9-15.9); WHITE BLOOD COUNT 10.2 K/mm3 (4.0-10.0)
[2022-04-16 08:45] LABS: ALBUMIN 3.1 g/dl (3.4-5.0); BLOOD UREA NITROGEN 13.9 mg/dL (7-18); CALCIUM 9.3 mg/dL (8.5-10.1)
[2022-04-16 08:49] LABS: CREATININE 1.5 mg/dL (0.55-1.3)
[2022-04-16 08:50] LABS: BILIRUBIN,TOTAL 0.3 mg/dL (0.2-1); TOT PROT 7.4 g/dl (6.4-8.2)
[2022-04-16] MEDS: ALLOPURINOL 300 MG TABLET (FP) PO SCH (11:37)
[2022-04-16] MEDS: FUROSEMIDE 20 MG TABLET (FP) PO SCH (11:38)
[2022-04-16] MEDS ORDERED: INSULIN (NOVOLOG) ASPART 100 UNITS/ML 10ML VIAL ONE (13:03)
[2022-04-16] MEDS ORDERED: SODIUM CHLORIDE 0.45% 1,000 ML IV SCH (16:45)
[2022-04-16] MEDS: SERTRALINE HCL 50 MG TABLET (FP) PO SCH (21:40)
[2022-04-16] MEDS: ATORVASTATIN CA 10 MG TABLET (FP) PO SCH (21:40)
[2022-04-16] MEDS ORDERED: REMDESIVIR 200 MG in SODIUM CHLORIDE 250 ML IVPB ONE (22:04)
[2022-04-17] MEDS ORDERED: DEXTROSE 5%-WATER - 50 ML IVPB ONE ×3 (01:55→16:46)
[2022-04-17] MEDS ORDERED: PIPERACILLIN/TAZOBACTAM 3.375 GM VIAL IVPB ONE ×3 (01:55→16:46)
[2022-04-17] MEDS: PIPERACILLIN/TAZOB 3.375 GM 3.375 GM in DEXTROSE 5%-WATER - 50 ML IVPB SCH ×3 (01:57→17:45)
[2022-04-17] MEDS: INSULIN SLIDING SCALE (NOVOLOG) 1 VIAL SQ SCH ×4 (06:10→21:00)
[2022-04-17] MEDS: ACETAMINOPHEN 325 MG TABLET (FP) PO PRN (06:14)
[2022-04-17 09:04] LABS: CALCIUM 8.7 mg/dL (8.5-10.1)
[2022-04-17 09:06] LABS: BLOOD UREA NITROGEN 11.7 mg/dL (7-18)
[2022-04-17 09:08] LABS: CREATININE 1.4 mg/dL (0.55-1.3)
[2022-04-17] MEDS: ALLOPURINOL 300 MG TABLET (FP) PO SCH (09:39)
[2022-04-17] MEDS: FUROSEMIDE 20 MG TABLET (FP) PO SCH (09:39)
[2022-04-17] MEDS: ATORVASTATIN CA 10 MG TABLET (FP) PO SCH (21:00)
[2022-04-17] MEDS: SERTRALINE HCL 50 MG TABLET (FP) PO SCH (21:00)
[2022-04-17] MEDS: REMDESIVIR 100 MG in SODIUM CHLORIDE 250 ML IVPB SCH (22:47)
[2022-04-18] MEDS ORDERED: DEXTROSE 5%-WATER - 50 ML IVPB ONE ×3 (02:05→17:30)
[2022-04-18] MEDS ORDERED: PIPERACILLIN/TAZOBACTAM 3.375 GM VIAL IVPB ONE ×3 (02:05→17:30)
[2022-04-18] MEDS: PIPERACILLIN/TAZOB 3.375 GM 3.375 GM in DEXTROSE 5%-WATER - 50 ML IVPB SCH ×3 (02:36→17:34)
[2022-04-18] MEDS: INSULIN SLIDING SCALE (NOVOLOG) 1 VIAL SQ SCH ×4 (06:00→22:15)
[2022-04-18 09:24] LABS: BLOOD UREA NITROGEN 10.1 mg/dL (7-18); CALCIUM 8.7 mg/dL (8.5-10.1)
[2022-04-18 09:28] LABS: CREATININE 1.2 mg/dL (0.55-1.3)
[2022-04-18] MEDS: FUROSEMIDE 20 MG TABLET (FP) PO SCH (09:49)
[2022-04-18] MEDS: ALLOPURINOL 300 MG TABLET (FP) PO SCH (09:49)
[2022-04-18] MEDS: ACETAMINOPHEN 325 MG TABLET (FP) PO PRN (16:48)
[2022-04-18] MEDS: ATORVASTATIN CA 10 MG TABLET (FP) PO SCH (22:07)
[2022-04-18] MEDS: SERTRALINE HCL 50 MG TABLET (FP) PO SCH (22:07)
[2022-04-18] MEDS: REMDESIVIR 100 MG in SODIUM CHLORIDE 250 ML IVPB SCH (22:08)
[2022-04-19] MEDS ORDERED: DEXTROSE 5%-WATER - 50 ML IVPB ONE ×3 (01:17→17:43)
[2022-04-19] MEDS ORDERED: PIPERACILLIN/TAZOBACTAM 3.375 GM VIAL IVPB ONE ×3 (01:17→17:43)
[2022-04-19] MEDS: PIPERACILLIN/TAZOB 3.375 GM 3.375 GM in DEXTROSE 5%-WATER - 50 ML IVPB SCH ×3 (01:45→17:45)
[2022-04-19] MEDS: INSULIN SLIDING SCALE (NOVOLOG) 1 VIAL SQ SCH ×4 (06:36→22:13)
[2022-04-19] MEDS: FUROSEMIDE 20 MG TABLET (FP) PO SCH (09:28)
[2022-04-19] MEDS: ALLOPURINOL 300 MG TABLET (FP) PO SCH (09:28)
[2022-04-19] MEDS: ATORVASTATIN CA 10 MG TABLET (FP) PO SCH (22:14)
[2022-04-19] MEDS: SERTRALINE HCL 50 MG TABLET (FP) PO SCH (22:14)
[2022-04-20] MEDS ORDERED: PIPERACILLIN/TAZOBACTAM 3.375 GM VIAL IVPB ONE ×3 (02:33→16:57)
[2022-04-20] MEDS ORDERED: DEXTROSE 5%-WATER - 50 ML IVPB ONE ×3 (02:34→16:57)
[2022-04-20] MEDS: PIPERACILLIN/TAZOB 3.375 GM 3.375 GM in DEXTROSE 5%-WATER - 50 ML IVPB SCH ×3 (03:07→17:13)
[2022-04-20] MEDS: INSULIN SLIDING SCALE (NOVOLOG) 1 VIAL SQ SCH ×4 (06:16→22:11)
[2022-04-20 09:05] LABS: BASO % 0.7 % (0-2.0); EOS % 5.8 % (0-4.5); HEMOGLOBIN 13.2 GM/dL (11.7-16.9); LYMPH % 17.5 % (8-40); MCH 28.1 pg (25.7-33.7); MCHC 32.1 g/dl (32.0-35.9); MEAN CELL VOLUME 87.6 fl (80-96); MEAN PLT VOLUME 8.8 fl (7.5-11.1); MONO % 7.4 % (3.8-10.2); NEUT % 68.6 % (42.8-82.8); PLATELET COUNT 435 10^3/uL (134-434); RBC 4.68 M/mm3 (4.00-5.60); RDW 14.9 % (11.9-15.9); WHITE BLOOD COUNT 13.6 K/mm3 (4.0-10.0)
[2022-04-20 09:25] LABS: BLOOD UREA NITROGEN 11.1 mg/dL (7-18)
[2022-04-20 09:26] LABS: ALBUMIN 2.7 g/dl (3.4-5.0); CALCIUM 8.7 mg/dL (8.5-10.1)
[2022-04-20 09:28] LABS: CREATININE 1.1 mg/dL (0.55-1.3)
[2022-04-20 09:30] LABS: BILIRUBIN,TOTAL 0.5 mg/dL (0.2-1); TOT PROT 6.4 g/dl (6.4-8.2)
[2022-04-20] MEDS: FUROSEMIDE 20 MG TABLET (FP) PO SCH (10:57)
[2022-04-20] MEDS: ALLOPURINOL 300 MG TABLET (FP) PO SCH (10:58)
[2022-04-20] MEDS: ACETAMINOPHEN 325 MG TABLET (FP) PO PRN (17:12)
[2022-04-20] MEDS: ATORVASTATIN CA 10 MG TABLET (FP) PO SCH (22:11)
[2022-04-20] MEDS: SERTRALINE HCL 50 MG TABLET (FP) PO SCH (22:12)
[2022-04-21] MEDS ORDERED: PIPERACILLIN/TAZOBACTAM 3.375 GM VIAL IVPB ONE ×3 (02:17→17:54)
[2022-04-21] MEDS ORDERED: DEXTROSE 5%-WATER - 50 ML IVPB ONE ×3 (02:18→17:54)
[2022-04-21] MEDS: PIPERACILLIN/TAZOB 3.375 GM 3.375 GM in DEXTROSE 5%-WATER - 50 ML IVPB SCH ×3 (02:38→17:59)
[2022-04-21] MEDS: INSULIN SLIDING SCALE (NOVOLOG) 1 VIAL SQ SCH ×3 (06:42→18:00)
[2022-04-21 07:51] LABS: HEMATOCRIT 40.5 % (35.4-49); HEMOGLOBIN 13.1 GM/dL (11.7-16.9); MCH 28.2 pg (25.7-33.7); MCHC 32.4 g/dl (32.0-35.9); MEAN CELL VOLUME 86.9 fl (80-96); MEAN PLT VOLUME 8.7 fl (7.5-11.1); PLATELET COUNT 418 10^3/uL (134-434); RBC 4.66 M/mm3 (4.00-5.60); RDW 15.1 % (11.9-15.9); WHITE BLOOD COUNT 12.8 K/mm3 (4.0-10.0)
[2022-04-21 08:17] LABS: CALCIUM 8.9 mg/dL (8.5-10.1)
[2022-04-21 08:19] LABS: ALBUMIN 2.7 g/dl (3.4-5.0); BLOOD UREA NITROGEN 13.8 mg/dL (7-18)
[2022-04-21 08:21] LABS: CREATININE 1.2 mg/dL (0.55-1.3)
[2022-04-21 08:22] LABS: BILIRUBIN,TOTAL 0.5 mg/dL (0.2-1); TOT PROT 6.7 g/dl (6.4-8.2)
[2022-04-21 09:20] LABS: ANISOCYTOSIS 2+; MACROCYTOSIS 0
[2022-04-21] MEDS: FUROSEMIDE 20 MG TABLET (FP) PO SCH (09:38)
[2022-04-21] MEDS: ALLOPURINOL 300 MG TABLET (FP) PO SCH (09:38)
[2022-04-21 15:40] VITALS: BP 179/76; TEMP 98
[2022-04-21 20:20] VITALS: PULSE 77
== END 2022-04-21 22:07 | disposition home or self-care (01) | DRG 178 ==
LOC: JER 15:47 → JERBED 19:23 → J8W 04-15 19:33
PROVIDERS: ADMIT Internal Medicine; ATTEND Internal Medicine
PROC: XW033E5 Introduction of Remdesivir Anti-infective into Peripheral Vein, Percutaneous Approach, New Technology Group 5 (ICD-10-PCS; principal; 2022-04-16)
DX: U07.1 COVID-19 (principal); N39.0 Urinary tract infection, site not specified; N17.9 Acute kidney failure, unspecified; I13.0 Hypertensive heart and chronic kidney disease with heart failure and stage 1 through stage 4 chronic kidney disease, or unspecified chronic kidney disease; E11.22 Type 2 diabetes mellitus with diabetic chronic kidney disease; N18.9 Chronic kidney disease, unspecified; I50.9 Heart failure, unspecified; M10.9 Gout, unspecified; F43.10 Post-traumatic stress disorder, unspecified; Z79.84 Long term (current) use of oral hypoglycemic drugs; I89.0 Lymphedema, not elsewhere classified; B96.1 Klebsiella pneumoniae [K. pneumoniae] as the cause of diseases classified elsewhere
CPT/HCPCS: 36415; 71045-TC-FY; 76775-TC; 80048; 80053; 81003; 82962; 83735; 83880; 84484; 85025; 87086; 87186; 93005; 93010; 94660; 99285-25; C9399; C9803-CS; U0003; U0005

== ENCOUNTER 2022-05-15 17:45 | Inpatient (IN) | payer OTHER ==
[2022-05-15] MEDS ORDERED: MECLIZINE HCL 25 MG TABLET (FP) PO ONE (19:20)
[2022-05-15] MEDS ORDERED: METOCLOPRAMIDE HCL INJECTION 10 MG/2 ML VIAL IVPUSH ONE (19:25)
[2022-05-15] MEDS ORDERED: MECLIZINE HCL 25 MG TABLET (FP) ONE (19:32)
[2022-05-15] MEDS ORDERED: METOCLOPRAMIDE HCL INJECTION 10 MG/2 ML VIAL ONE (19:33)
[2022-05-15 20:47] LABS: BASO % 0.4 % (0-2.0); EOS % 0.7 % (0-4.5); HEMATOCRIT 43.6 % (35.4-49); HEMOGLOBIN 14.3 GM/dL (11.7-16.9); MCH 29.2 pg (25.7-33.7); MCHC 32.8 g/dl (32.0-35.9); MEAN CELL VOLUME 88.9 fl (80-96); MEAN PLT VOLUME 9.3 fl (7.5-11.1); MONO % 5.1 % (3.8-10.2); NEUT % 77.8 % (42.8-82.8); PLATELET COUNT 341 10^3/uL (134-434); RDW 15.7 % (11.9-15.9)
[2022-05-15 20:54] LABS: PH,URINE 6.5 (5.0-8.0); URINE APPEARANCE CLEAR; URINE BILIRUBIN NEGATIVE (NEGATIVE); URINE COLOR YELLOW; URINE GLUCOSE (UA) 3+ (NEGATIVE); URINE KETONE NEGATIVE (NEGATIVE); URINE LEUK ESTERASE NEGATIVE (NEGATIVE); URINE NITRITE NEGATIVE (NEGATIVE); URINE PROTEIN NEGATIVE (NEGATIVE)
[2022-05-15 21:03] LABS: CHLORIDE 99 mmol/L (98-107); SODIUM 140 mmol/L (136-145)
[2022-05-15 21:05] LABS: ALBUMIN 3.5 g/dl (3.4-5.0); ANION GAP 10 MMOL/L (8-16); CALCIUM 9.5 mg/dL (8.5-10.1); CO2 30 mmol/L (21-32); GLUCOSE,RANDOM 119 mg/dL (74-106); MAGNESIUM 2.2 mg/dL (1.8-2.4)
[2022-05-15 21:06] LABS: BLOOD UREA NITROGEN 25.6 mg/dL (7-18)
[2022-05-15 21:08] LABS: CREATININE 1.8 mg/dL (0.55-1.3); SGPT/ALT 18 U/L (13-61)
[2022-05-15 21:09] LABS: SGOT/AST 17 U/L (15-37)
[2022-05-15 21:10] LABS: BILIRUBIN,TOTAL 0.4 mg/dL (0.2-1)
[2022-05-15 21:11] LABS: ALK PHOS 109 U/L (45-117)
[2022-05-15] MEDS ORDERED: ACETAMINOPHEN 1000 MG/100 ML BAG IVPB ONE (21:16)
[2022-05-15] MEDS ORDERED: SODIUM CHLORIDE 0.9% 500 ML INFUS.BAG IV ONE (21:20)
[2022-05-15] MEDS ORDERED: ACETAMINOPHEN INJECTION 100 ML IVPB ONE (21:44)
[2022-05-16] MEDS ORDERED: ASPIRIN 81 MG CHEWABLE TABLETS PO ONE (00:38)
[2022-05-16] MEDS: DEXTROSE 5%-0.45% SALINE 1,000 ML IV SCH (02:04)
[2022-05-16 08:22] LABS: BASO % 0.5 % (0-2.0); EOS % 2.5 % (0-4.5); HEMATOCRIT 42.4 % (35.4-49); HEMOGLOBIN 13.7 GM/dL (11.7-16.9); LYMPH % 25.1 % (8-40); MCH 29.1 pg (25.7-33.7); MCHC 32.4 g/dl (32.0-35.9); MEAN CELL VOLUME 89.9 fl (80-96); MONO % 8.6 % (3.8-10.2); NEUT % 63.3 % (42.8-82.8); PLATELET COUNT 307 10^3/uL (134-434); RBC 4.72 M/mm3 (4.00-5.60); RDW 15.6 % (11.9-15.9); WHITE BLOOD COUNT 11.3 K/mm3 (4.0-10.0)
[2022-05-16 08:28] LABS: ALBUMIN 3.1 g/dl (3.4-5.0); BLOOD UREA NITROGEN 22.5 mg/dL (7-18); CALCIUM 9.4 mg/dL (8.5-10.1)
[2022-05-16 08:31] LABS: CREATININE 1.5 mg/dL (0.55-1.3)
[2022-05-16 08:32] LABS: BILIRUBIN,TOTAL 0.6 mg/dL (0.2-1)
[2022-05-16 08:33] LABS: TOT PROT 7.2 g/dl (6.4-8.2)
[2022-05-16] MEDS ORDERED: FUROSEMIDE 20 MG TABLET (FP) PO SCH (10:00)
[2022-05-16] MEDS ORDERED: HEPARIN NA (PORCINE) 5,000 UNITS/ML 1ML VIAL ONE ×2 (10:27→21:42)
[2022-05-16] MEDS ORDERED: sitaGLIPtin PHOSPHATE 50 MG TABLET ONE (10:27)
[2022-05-16] MEDS ORDERED: ASPIRIN 81 MG CHEWABLE TABLETS ONE (10:27)
[2022-05-16] MEDS ORDERED: FUROSEMIDE 20 MG TABLET (FP) ONE (10:27)
[2022-05-16] MEDS: HEPARIN NA (PORCINE) 5,000 UNITS/ML 1ML VIAL SQ SCH ×2 (10:38→21:50)
[2022-05-16] MEDS: ALLOPURINOL 300 MG TABLET (FP) PO SCH (10:38)
[2022-05-16] MEDS: ASPIRIN 81 MG CHEWABLE TABLETS PO SCH (10:38)
[2022-05-16] MEDS: ATORVASTATIN CA 10 MG TABLET (FP) PO SCH (21:30)
[2022-05-16] MEDS: SERTRALINE HCL 50 MG TABLET (FP) PO SCH (21:30)
[2022-05-16] MEDS ORDERED: SERTRALINE HCL 50 MG TABLET (FP) ONE (21:42)
[2022-05-16] MEDS ORDERED: ATORVASTATIN CA 10 MG TABLET (FP) ONE (21:42)
[2022-05-17] MEDS: DEXTROSE 5%-0.45% SALINE 1,000 ML IV SCH (02:37)
[2022-05-17 03:13] VITALS: BMI 35.5
[2022-05-17 09:06] LABS: ALBUMIN 2.9 g/dl (3.4-5.0); BILIRUBIN,TOTAL 0.3 mg/dL (0.2-1)
[2022-05-17 09:09] LABS: BLOOD UREA NITROGEN 19.7 mg/dL (7-18); CREATININE 1.6 mg/dL (0.55-1.3)
[2022-05-17 09:10] LABS: TOT PROT 6.7 g/dl (6.4-8.2)
[2022-05-17 09:11] LABS: CALCIUM 9.1 mg/dL (8.5-10.1)
[2022-05-17] MEDS: HEPARIN NA (PORCINE) 5,000 UNITS/ML 1ML VIAL SQ SCH ×2 (10:15→21:00)
[2022-05-17] MEDS: ASPIRIN 81 MG CHEWABLE TABLETS PO SCH (10:15)
[2022-05-17] MEDS: ALLOPURINOL 300 MG TABLET (FP) PO SCH (11:18)
[2022-05-17] MEDS ORDERED: ACETAMINOPHEN 325 MG TABLET (FP) ONE (15:24)
[2022-05-17] MEDS: ACETAMINOPHEN 325 MG TABLET (FP) PO PRN ×2 (15:45→20:24)
[2022-05-17] MEDS: SERTRALINE HCL 50 MG TABLET (FP) PO SCH (21:00)
[2022-05-17] MEDS: ATORVASTATIN CA 10 MG TABLET (FP) PO SCH (21:00)
[2022-05-17] MEDS: INSULIN SLIDING SCALE (NOVOLOG) 1 VIAL SQ SCH (21:15)
[2022-05-18] MEDS: INSULIN SLIDING SCALE (NOVOLOG) 1 VIAL SQ SCH ×4 (07:12→21:50)
[2022-05-18] MEDS: DEXTROSE 5%-0.45% SALINE 1,000 ML IV SCH (07:12)
[2022-05-18 08:32] LABS: CALCIUM 8.6 mg/dL (8.5-10.1)
[2022-05-18 08:34] LABS: BLOOD UREA NITROGEN 13.1 mg/dL (7-18)
[2022-05-18 08:37] LABS: CREATININE 1.4 mg/dL (0.55-1.3)
[2022-05-18] MEDS: HEPARIN NA (PORCINE) 5,000 UNITS/ML 1ML VIAL SQ SCH ×2 (09:40→21:58)
[2022-05-18] MEDS: ASPIRIN 81 MG CHEWABLE TABLETS PO SCH (09:40)
[2022-05-18] MEDS: ALLOPURINOL 300 MG TABLET (FP) PO SCH (09:40)
[2022-05-18] MEDS: ACETAMINOPHEN 325 MG TABLET (FP) PO PRN ×2 (15:17→20:51)
[2022-05-18] MEDS: SERTRALINE HCL 50 MG TABLET (FP) PO SCH (21:59)
[2022-05-18] MEDS: ATORVASTATIN CA 10 MG TABLET (FP) PO SCH (21:59)
[2022-05-19] MEDS: INSULIN SLIDING SCALE (NOVOLOG) 1 VIAL SQ SCH ×3 (06:08→17:00)
[2022-05-19 08:27] LABS: BASO % 0.7 % (0-2.0); EOS % 3.3 % (0-4.5); HEMOGLOBIN 13.8 GM/dL (11.7-16.9); LYMPH % 25.7 % (8-40); MCH 29.4 pg (25.7-33.7); MCHC 32.9 g/dl (32.0-35.9); MEAN CELL VOLUME 89.4 fl (80-96); MEAN PLT VOLUME 9.3 fl (7.5-11.1); MONO % 7.1 % (3.8-10.2); NEUT % 63.2 % (42.8-82.8); PLATELET COUNT 316 10^3/uL (134-434); RDW 15.6 % (11.9-15.9); WHITE BLOOD COUNT 8.9 K/mm3 (4.0-10.0)
[2022-05-19 08:54] LABS: BLOOD UREA NITROGEN 12.9 mg/dL (7-18); CALCIUM 8.8 mg/dL (8.5-10.1)
[2022-05-19 08:55] LABS: ALBUMIN 2.8 g/dl (3.4-5.0); MAGNESIUM 2.1 mg/dL (1.8-2.4)
[2022-05-19 08:57] LABS: CREATININE 1.3 mg/dL (0.55-1.3)
[2022-05-19 08:59] LABS: BILIRUBIN,TOTAL 0.3 mg/dL (0.2-1); TOT PROT 6.7 g/dl (6.4-8.2)
[2022-05-19] MEDS ORDERED: REGADENOSON 0.4 MG/5 ML PRE-FILLED SYRINGE IVPUSH ONE ×2 (10:03→10:15)
[2022-05-19 10:24] VITALS: RESP 18
[2022-05-19] MEDS: ALLOPURINOL 300 MG TABLET (FP) PO SCH (11:17)
[2022-05-19] MEDS: HEPARIN NA (PORCINE) 5,000 UNITS/ML 1ML VIAL SQ SCH (11:17)
[2022-05-19] MEDS: ASPIRIN 81 MG CHEWABLE TABLETS PO SCH (11:17)
[2022-05-19 15:40] VITALS: BP 145/72; PULSE 82; TEMP 98.2
== END 2022-05-19 17:14 | disposition home or self-care (01) | DRG 683 ==
LOC: JER 17:45 → JERBED 22:17 → J4S 05-17 02:20
PROVIDERS: ADMIT Internal Medicine; ATTEND Internal Medicine
DX: N17.9 Acute kidney failure, unspecified (principal); I24.8 Other forms of acute ischemic heart disease; I13.0 Hypertensive heart and chronic kidney disease with heart failure and stage 1 through stage 4 chronic kidney disease, or unspecified chronic kidney disease; R55 Syncope and collapse; G47.33 Obstructive sleep apnea (adult) (pediatric); E78.5 Hyperlipidemia, unspecified; F43.10 Post-traumatic stress disorder, unspecified; H81.10 Benign paroxysmal vertigo, unspecified ear; M10.9 Gout, unspecified; E66.9 Obesity, unspecified; Z68.38 Body mass index [BMI] 38.0-38.9, adult; D72.829 Elevated white blood cell count, unspecified; N28.1 Cyst of kidney, acquired; E11.22 Type 2 diabetes mellitus with diabetic chronic kidney disease; N18.9 Chronic kidney disease, unspecified; I50.9 Heart failure, unspecified; R51.9 Headache, unspecified
CPT/HCPCS: 36415; 70450-TC; 71045-TC-FY; 72125-TC; 73030-TC-LT-FY; 74177-TC; 78452-TC; 80048; 80053; 81003; 82962; 83735; 83880; 84484; 85025; 87086; 93005; 93010; 93017; 93306-TC; 93880-TC; 97116-GP; 97161-GP; 99285-25; A9502; C9803-CS; J1644; J2785; Q9967; U0003; U0005

== ENCOUNTER 2023-06-09 06:07 | Day surgery (SDC) | payer OTHER ==
[2023-06-09] MEDS ORDERED: CELECOXIB 200 MG CAPSULE ONE (06:18)
[2023-06-09] MEDS ORDERED: CEFAZOLIN 2 GM in DEXTROSE 5%-WATER - 50 ML IVPB ONE (06:30)
[2023-06-09] MEDS ORDERED: TRANEXAMIC ACID 1000 MG/10 ML VIAL IVPUSH ONE (06:30)
[2023-06-09] MEDS ORDERED: CELECOXIB 200 MG CAPSULE PO ONE (06:30)
[2023-06-09 06:51] VITALS: BMI 32.5
[2023-06-09] MEDS ORDERED: ceFAZolin SODIUM 1 GM VIAL ONE ×2 (07:03→08:35)
[2023-06-09] MEDS ORDERED: VANCOMYCIN 1,000 MG VIAL (RESTRICTED TO ID ONLY) ONE (07:03)
[2023-06-09] MEDS ORDERED: PROPOFOL 40 ML ONE (07:04)
[2023-06-09] MEDS ORDERED: MIDAZOLAM HCL 2 MG/2 ML SINGLE DOSE VIAL ONE ×2 (07:04→09:29)
[2023-06-09] MEDS ORDERED: BUPIVACAINE HCL/PF 0.5% (5MG/ML) 10 ML VIAL ONE (07:06)
[2023-06-09] MEDS ORDERED: BUPIVACAINE HCL/PF 0.5% (5 MG/ML) 30 ML VIAL IJ ONE (07:07)
[2023-06-09] MEDS ORDERED: BUPIVACAINE LIPOSOME/PF (EXPAREL) 266 MG/20 ML VIAL ONE (07:07)
[2023-06-09] MEDS ORDERED: THROMBIN (BOVINE) 5,000 UNIT VIAL TP ONE (07:29)
[2023-06-09] MEDS ORDERED: ONDANSETRON 4 MG/2 ML VIAL IVPUSH PRN ×2 (07:53→10:39)
[2023-06-09] MEDS ORDERED: PATIENT'S OWN MEDICATION (NON-FORMULARY) (Semaglutide [Ozempic] 0.25 MG/0.4 ML Pen.Injctr) SQ SCH (08:00)
[2023-06-09] MEDS ORDERED: LACTATED RINGERS SOLUTION 1,000 ML IV SCH (08:00)
[2023-06-09] MEDS ORDERED: DEXAMETHASONE SOD PHOSPHATE 4 MG/1 ML VIAL ONE (08:35)
[2023-06-09] MEDS ORDERED: TRANEXAMIC ACID 1000 MG/10 ML VIAL ONE (08:35)
[2023-06-09] MEDS ORDERED: KETOROLAC TROMETHAMINE 30 MG/1 ML VIAL ONE (09:44)
[2023-06-09] MEDS ORDERED: ACETAMINOPHEN INJECTION 100 ML IVPB ONE (09:44)
[2023-06-09] MEDS ORDERED: PATIENT'S OWN MEDICATION (NON-FORMULARY) (Linaclotide [Linzess] 72 MCG Capsule) PO SCH (10:00)
[2023-06-09] MEDS ORDERED: PATIENT'S OWN MEDICATION (NON-FORMULARY) (Empagliflozin 25 MG Tablet) PO SCH (10:00)
[2023-06-09] MEDS ORDERED: FINERENONE 20 MG PO SCH (10:00)
[2023-06-09] MEDS ORDERED: PATIENT'S OWN MEDICATION (NON-FORMULARY) (Insulin Glargine,Hum.Rec.Anlog [Basaglar Kwikpen SQ SCH (10:00)
[2023-06-09] MEDS ORDERED: oxyCODONE HCL 5 MG TABLET PO PRN (10:39)
[2023-06-09] MEDS: KETOROLAC TROMETHAMINE 30 MG/1 ML VIAL IVPUSH ONE ×2 (10:45→12:59)
[2023-06-09] MEDS: ACETAMINOPHEN 1000 MG/100 ML BAG IVPB ONE ×2 (10:47→12:00)
[2023-06-09] MEDS: LACTATED RINGERS SOLUTION 1,000 ML IV SCH (11:22)
[2023-06-09] MEDS ORDERED: FINASTERIDE 5 MG TABLET (FP) PO SCH ×2 (12:00→22:00)
[2023-06-09] MEDS: TAMSULOSIN HCL 0.4 MG CAP PO SCH (12:48)
[2023-06-09] MEDS: metFORMIN HCL 500 MG TABLET (FP) PO SCH ×2 (12:49→18:38)
[2023-06-09] MEDS: FUROSEMIDE 40 MG TABLET (FP) PO SCH (12:50)
[2023-06-09] MEDS: PREGABALIN 100 MG CAPSULE PO SCH ×2 (12:50→21:34)
[2023-06-09] MEDS: SENNOSIDES/DOCUSATE COMBO (SENNA PLUS) TABLET (UD) PO SCH ×2 (12:52→21:34)
[2023-06-09] MEDS: LISINOPRIL 5 MG TABLET PO SCH (12:53)
[2023-06-09] MEDS: PANTOPRAZOLE 40 MG TABLET PO SCH (12:54)
[2023-06-09] MEDS: MULTIVITAMINS (DAILY MVI) TABLET (FP) PO SCH (12:59)
[2023-06-09] MEDS: oxyCODONE HCL 5 MG TABLET PO PRN ×3 (15:06→23:36)
[2023-06-09] MEDS: CEFAZOLIN SODIUM 2 GM in DEXTROSE 5%-WATER 100 ML IVPB SCH ×2 (15:08→23:37)
[2023-06-09] MEDS: ACETAMINOPHEN 500 MG TABLET (FP) PO SCH ×2 (17:07→23:37)
[2023-06-09] MEDS: oxyCODONE HCL 10 MG SUSTAINED ACTING TABLET PO SCH (21:35)
[2023-06-09] MEDS ORDERED: INSULIN (LEVEMIR) 100 UNITS/ML UNITS SQ SCH ×2 (22:00)
[2023-06-09] MEDS ORDERED: SERTRALINE HCL 50 MG TABLET (FP) PO SCH (22:00)
[2023-06-09] MEDS ORDERED: ATORVASTATIN CA 20 MG TABLET (FP) PO SCH (22:00)
[2023-06-10 02:01] VITALS: RESP 18
[2023-06-10] MEDS: oxyCODONE HCL 5 MG TABLET PO PRN (04:30)
[2023-06-10] MEDS: ACETAMINOPHEN 500 MG TABLET (FP) PO SCH ×2 (06:39→12:45)
[2023-06-10] MEDS: metFORMIN HCL 500 MG TABLET (FP) PO SCH (06:40)
[2023-06-10] MEDS ORDERED: INSULIN (LEVEMIR) 100 UNITS/ML UNITS SQ SCH (07:00)
[2023-06-10 07:47] LABS: HEMATOCRIT 37.8 % (35.4-49); HEMOGLOBIN 12.3 G/dL (11.7-16.9); MCH 29.3 pg (25.7-33.7); MCHC 32.5 g/dl (32.0-35.9); MEAN CELL VOLUME 90.3 fl (80-96); MEAN PLT VOLUME 7.8 fl (7.5-11.1); PLATELET COUNT 311.5 10^3/uL (134-434); RBC 4.19 10^6/uL (4.00-5.60); RDW 15.5 % (11.9-15.9); WHITE BLOOD COUNT 12.9 10^3/uL (4.0-10.8)
[2023-06-10] MEDS ORDERED: ASPIRIN 325 MG TABLET PO SCH (08:00)
[2023-06-10] MEDS: TAMSULOSIN HCL 0.4 MG CAP PO SCH (08:14)
[2023-06-10] MEDS: SENNOSIDES/DOCUSATE COMBO (SENNA PLUS) TABLET (UD) PO SCH (09:05)
[2023-06-10] MEDS: oxyCODONE HCL 10 MG SUSTAINED ACTING TABLET PO SCH (09:05)
[2023-06-10] MEDS: FUROSEMIDE 40 MG TABLET (FP) PO SCH (09:05)
[2023-06-10] MEDS: PREGABALIN 100 MG CAPSULE PO SCH (09:05)
[2023-06-10] MEDS: MULTIVITAMINS (DAILY MVI) TABLET (FP) PO SCH (09:05)
[2023-06-10] MEDS: PANTOPRAZOLE 40 MG TABLET PO SCH (09:05)
[2023-06-10] MEDS: LISINOPRIL 5 MG TABLET PO SCH (09:06)
[2023-06-10] MEDS: LACTATED RINGERS SOLUTION 1,000 ML IV SCH (12:44)
[2023-06-10 14:36] VITALS: BP 105/54; PULSE 64; TEMP 97.7
== END 2023-06-10 14:46 ==
LOC: FASUSAT 06:07 → FM/S 10:54 → FASUSAT 06-10 14:46
PROVIDERS: ATTEND Orthopaedic Surgery
PROC: 8E0Y0CZ Robotic Assisted Procedure of Lower Extremity, Open Approach (ICD-10-PCS; 2023-06-09)
PROC: 0SRD0JA Replacement of Left Knee Joint with Synthetic Substitute, Uncemented, Open Approach (ICD-10-PCS; principal; 2023-06-09 08:24)
DX: M17.12 Unilateral primary osteoarthritis, left knee (principal)
CPT/HCPCS: 20985; 27447; C1776; S2900; 36415; 73560-TC-LT-FY; 82962; 85027; 94760; 97116-GP; 97161-GP; C1713